=== PATIENT | male | born 1985 | race Caucasian/White ===

== ENCOUNTER 2022-04-24 16:42 | Emergency (ER) | payer OTHER ==
[~2022-04-24 16:42] MED LIST: FLOMAX0.4 MG PO; NORCO 5-325 TA1 EACH PO
[2022-04-24 18:45] LABS: BASOPHIL 0.6 % (0-2); EOSINOPHIL 3.1 % (0-5); HCT 42.5 % (42.0-52.0); HGB 13.5 g/dl (13.2-18.0); MCH 29.1 pg (25.0-31.0); MCHC 31.8 g/dL (32.0-36.0); MCV 91.6 fL (78.0-100.0); MONOCYTE 9.4 % (0-12); MPV 10.2 fL (6.0-9.5); NEUTROPHIL 55.6 % (41-80); NRBC 0; PLT 282 K/uL (150-400); RBC 4.64 M/uL (4.70-6.00); RDW 13.3 % (11.5-14.0); WBC 7.9 K/uL (4.0-10.5)
[2022-04-24 18:54] LABS: INR 1.01 (0.9-1.2); PTT 22.7 SECONDS (24.9-34.6)
[2022-04-24 19:03] LABS: ALBUMIN 3.9 g/dL (3.4-5.0); BILIRUBIN - TOTAL 0.3 mg/dL (0.2-1.0); CREATININE 0.88 mg/dL (0.67-1.17); GLOBULIN (CALCULATION) 3.6 g/dL; POTASSIUM 4.1 mmol/L (3.5-5.1); TOTAL PROTEIN 7.5 g/dL (6.4-8.2)
== END 2022-04-24 20:35 | disposition home or self-care (01) ==
LOC: FER 16:42
PROVIDERS: Emergency Medicine
DX: R07.89 Other chest pain (principal); Z88.0 Allergy status to penicillin
CPT/HCPCS: 36415; 71045; 80053; 84484; 85025; 85610; 85730; 93005